=== PATIENT | female | born 2000 | race African-American/Black ===

== ENCOUNTER 2018-03-22 22:05 | Emergency (ER) | payer OTHER ==
[~2018-03-22] VITALS: Ht 152.4 cm; Wt 54.4 kg
[2018-03-22 23:56] VITALS: BP 127/87
== END 2018-03-22 23:57 | disposition home or self-care (01) ==
LOC: ER 22:05
DX: S50.311A Abrasion of right elbow, initial encounter (principal); Z88.0 Allergy status to penicillin; V89.2XXA Person injured in unspecified motor-vehicle accident, traffic, initial encounter; Y93.89 Activity, other specified; Y92.89 Other specified places as the place of occurrence of the external cause; Y99.8 Other external cause status